=== PATIENT | female | born 1960 | race Caucasian/White ===

== ENCOUNTER 2017-02-14 14:04 | Emergency (ER) | payer OTHER ==
[~2017-02-14] VITALS: Ht 162.6 cm; Wt 86.5 kg
[2017-02-14 14:08] VITALS: Ht 162.6 cm; Wt 86.5 kg
[2017-02-14 19:29] LABS: BASOPHILS % 0.4 % (0.0-2.0); EOSINOPHILS % 0.4 % (0.0-7.0); HEMATOCRIT 44.9 % (37.0-47.0); HEMOGLOBIN 15.3 g/dl (12.0-16.0); LYMPHOCYTES # 3.3 10^3/ul (0.8-2.9); LYMPHOCYTES % 42.6 % (15.0-51.0); MEAN CORPUSCULAR HEMOGLOBIN 29.9 pg (29.0-33.0); MEAN CORPUSCULAR HGB CONC 34.1 g/dl (32.0-37.0); MEAN CORPUSCULAR VOLUME 87.7 fl (82.0-101.0); MEAN PLATELET VOLUME 9.8 fl (7.4-10.4); MONOCYTE # 0.6 10^3/ul (0.3-0.9); MONOCYTES % 7.2 % (0.0-11.0); NEUTROPHIL # 3.9 10^3/ul (1.6-7.5); NEUTROPHILS % 49.3 % (39.0-77.0); PLATELET COUNT 268 10^3/UL (140-415); RED BLOOD COUNT 5.12 10^6/ul (4.20-5.40); RED CELL DISTRIBUTION WIDTH 13.8 % (11.5-14.5); WHITE BLOOD COUNT 7.8 10^3/ul (4.8-10.8)
--- NOTE | 2017-02-14 19:46 | RADRPT ---
PROCEDURE: XR Chest. CLINICAL INDICATION: Chest pain TECHNIQUE: A single portable view of the chest was obtained. COMPARISON: None FINDINGS: The cardiomediastinal silhouette is within normal limits. The lungs and pleural spaces are clear. The soft tissues and osseous structures are unremarkable. IMPRESSION: No acute cardiopulmonary disease. RPTAT: HPNM Physician Oh Date Time Electronically viewed and signed by Ron Joseph Physician on 02/14/2017 19:45 /
[2017-02-14 19:47] LABS: ANION GAP 13 (8-16); BLOOD UREA NITROGEN 6 mg/dl (7-20); CALCIUM 10.1 mg/dl (8.4-10.2); CARBON DIOXIDE 31 mmol/L (21-31); CHLORIDE 103 mmol/L (97-110); CREATININE 0.77 mg/dl (0.44-1.00); GLUCOSE 121 mg/dl (70-220); SODIUM 144 mmol/L (135-144)
[2017-02-14 20:00] LABS: TROPONIN-I < 0.012 ng/ml (0.00-0.12)
[2017-02-14] MEDS ORDERED: POTASSIUM CHLORIDE (SR) 20 MEQ TAB PO STA (20:01)
[2017-02-14] MEDS ORDERED: KETOROLAC 30 MG INJ IV STA (20:03)
--- NOTE | 2017-02-14 20:06 | ERD ---
ER Documentation Chief Complaint Date/Time DATE: 02/14/17 TIME: 20:04 Chief Complaint cwp onset today HPI This is a 56-year-old female who presents to the emergency room for evaluation of chest pain. The patient states that her chest pain has been constant for 3 days duration and she localizes it to the center of her chest. She states is worse with deep breaths and denies any radiation. She denies any associated nausea, diaphoresis or vomiting. She denies any relieving factors for her pain and came to the emergency room today for evaluation of her symptoms. ROS All systems reviewed and are negative except as per history of present illness. PMhx/Soc Medical and Surgical Hx: pt denies Surgical Hx History of Surgery: No Anesthesia Reaction: No Hx Neurological Disorder: No Hx Respiratory Disorders: No Hx Cardiac Disorders: Yes (HTN) Hx Psychiatric Problems: No Hx Miscellaneous Medical Probl: Yes (Thyroid problems, cholesterol) Hx Alcohol Use: No Hx Substance Use: No Hx Tobacco Use: No Smoking Status: Never smoker Physical Exam Vitals Vital Signs Date Time Temp Pulse Resp B/P Pulse Ox O2 Delivery O2 Flow Rate FiO2 02/14/17 14:08 98.1 139 18 179/92 99 Physical Exam INITIAL VITAL SIGNS: Reviewed by me GENERAL: The patient is well developed and appropriate for usual state of health in no apparent distress HEENT: Pupils equal, round, and reactive to light. EOMI. There is no scleral icterus. NECK: C-spine is soft and supple, there is no meningismus. There is no cervical lymphadenopathy. LUNGS: Clear to auscultation bilaterally. There are no rales, wheezes or rhonchi. HEART: Regular rate and rhythm, no murmurs, clicks, rubs or gallops. ABDOMEN: Soft, non-tender, non-distended. There are bowel sounds in all four quadrants. No rebound or guarding. EXTREMITIES: There is no peripheral cyanosis or edema. No focal swelling or erythema. NEUROLOGICAL: The patient moves all four extremities with 5/5 strength. Cranial nerves II - XII are intact. Normal gait. Alert and oriented SKIN: There is no apparent rash or petechiae. Musculoskeletal: Tenderness to palpation of anterior chest wall HEME/LYMPHATIC: There is no evidence of excessive bruising or lymphedema. PSYCHIATRIC: The patient does not appear anxious or depressed. Result Diagram: [id number] Results 24 hrs Laboratory Tests Test 02/14/17 19:15 White Blood Count 7.810^3/ul Red Blood Count 5.1210^6/ul Hemoglobin 15.3g/dl Hematocrit 44.9% Mean Corpuscular Volume 87.7fl Mean Corpuscular Hemoglobin 29.9pg Mean Corpuscular Hemoglobin Concent 34.1g/dl Red Cell Distribution Width 13.8% Platelet Count 78504^3/UL Mean Platelet Volume 9.8fl Neutrophils % 49.3% Lymphocytes % 42.6% Monocytes % 7.2% Eosinophils % 0.4% Basophils % 0.4% Nucleated Red Blood Cells % 0.0/100WBC Neutrophils # 3.910^3/ul Lymphocytes # 3.310^3/ul Monocytes # 0.610^3/ul Eosinophils # 0.010^3/ul Basophils # 0.010^3/ul Nucleated Red Blood Cells # 0.010^3/ul Sodium Level 144mmol/L Potassium Level 3.0mmol/L Chloride Level 103mmol/L Carbon Dioxide Level 31mmol/L Anion Gap 13 Blood Urea Nitrogen 6mg/dl Creatinine 0.77mg/dl Glucose Level 121mg/dl Calcium Level 10.1mg/dl Troponin I < 0.012ng/ml Current Medications Medications (Trade) Dose Ordered Sig/Dean Route PRN Reason Start Time Stop Time Status Last Admin Dose Admin Potassium Chloride (Klor-Con 20) 40 meq ONCE STAT PO 02/14/17 20:01 02/14/17 20:02 UNV Procedures/MDM EKG: Rate/Rhythm: [Normal Sinus Rhythm] QRS, ST, T-waves: [No changes consistent w/ acute ischemia] Impression: [No evidence of ischemia or arrhythmia] Chest X-ray 1V Interpreted by me: Soft Tissue: No acute abnormalities Bones: No acute abnormalities Mediastinum/Cardiac Silhouette/Lungs: [No acute abnormalities] This 46-year-old female presents to the ER for evaluation of chest pain. This patient was nonfebrile, hemodynamically stable and nontoxic appearing on my examination. She did have reproducible palpation of the anterior chest wall. She underwent a cardiac workup in the emergency room including a troponin which is negative. Her EKG is nonischemic and chest x-ray is clear. The patient was given Toradol in stating that she was feeling better. Her laboratories reveal a potassium of 3 she was given 40 mg once a potassium by mouth. This patient is likely suffering from costochondritis and will be discharged home with a prescription for Motrin at this time. I doubt ACS at this time, she was advised she can return to the ER any point for reevaluation if she would have worsening pain and she verbalized understanding and is okay with her plan of care. Differential diagnoses entertained was broad with potential high acuity. Patient has been evaluated for acute myocardial infarction, unstable angina, aortic dissection, pulmonary embolism, other intrathoracic and cardiac concerns. Ultimately the patient's evaluation is nondiagnostic. Based on the patient's lack of risk factors, as well as the patient's clinical, laboratory, and imaging data, the patient appears to be low risk for these high risk causes of chest pain. Departure Diagnosis: Primary Impression: Acute costochondritis Additional Impressions: Chest wall pain Hypokalemia Condition: EMMY Ritter DO Feb 14, 2017 20:06
[2017-02-14] MEDS ORDERED: NAPR-260 PO (20:07)
[2017-02-14 20:26] VITALS: BP 145/94; PULSE 88; RESP 19; TEMP 98.3
== END 2017-02-14 20:39 | disposition home or self-care (01) ==
LOC: E/R 14:04
DX: M94.0 Chondrocostal junction syndrome [Tietze] (principal); E87.6 Hypokalemia; I10 Essential (primary) hypertension
CPT/HCPCS: 36415; 71010; 80048; 84484; 85025; 93005; 96374; J1885; Z7502; Z7610